=== PATIENT | female | born 1965 | race Caucasian/White ===

== ENCOUNTER 2020-07-23 11:12 | Emergency (ER) | payer MEDICAID ==
[~2020-07-23] VITALS: Ht 157.5 cm; Wt 79.4 kg
--- NOTE | 2020-07-23 11:15 | NUR ---
Patient to [facility] for evaluation. Side rails up.
--- NOTE | 2020-07-23 11:20 | NUR ---
Pt walked in to ER with medication refill request. Reports she doesn't have a primary MD at this time because she just moved here. V/S stable, pt is afebrile. Currently sitting in hallway, will continue to monitor.
[2020-07-23 11:24] VITALS: BP_SYST 127
--- NOTE | 2020-07-23 11:25 | NUR ---
ER Dr. Tyler at bedside examining patient.
[2020-07-23 11:29] VITALS: BP_SYST 127
--- NOTE | 2020-07-23 11:35 | NUR ---
Patient given written and verbal discharge instructions and verbalizes understanding. ER MD discussed with patient the results and treatment provided. Patient in stable condition. ID arm band removed. Rx of Lexapro and Xanax given. Patient educated on pain management and to follow up with PMD. Pain Scale 0. Opportunity for questions provided and answered. Medication side effect fact sheet provided.
== END 2020-07-23 11:35 | disposition home or self-care (01) ==
LOC: SED 11:12
DX: Z76.0 Encounter for issue of repeat prescription (principal)
CPT/HCPCS: 99283